=== PATIENT | male | born 1960 | race Caucasian/White ===

== ENCOUNTER → 2021-01-03 | Day surgery (SDC) | payer OTHER ==
[~2021-01-03] VITALS: Ht 180.3 cm; Wt 158.0 kg
[~2021-01-03] MED LIST: ATOR40TA59 PO; CHOL5000 PO; EZET10TA20 PO; GLIM4TAB8 PO; HYDROmorphone 2 MG/ML VIAL IVP PRN; IV RINGERS,LACTATED 1000ML 1,000 ML IV SCH; LIDOCAINE 2% PF 5 ML VIAL. ONE; LOSA100T14 PO; METF10007 PO; METO100T7 PO; MORPHINE SULFATE 2 MG/ML INJ. IVP PRN; PROCHLORPERAZINE 10 MG/2 ML VIAL. IVP PRN; PROPOFOL 10 MG/ML (20ML) VIAL. IV ONE; fentaNYL PF VIAL 100 MCG/2 ML VIAL IVP PRN
[2021-01-03 12:15] VITALS: BP 160/75
--- NOTE | 2021-01-03 13:29 | PDOC4 ---
PROCEDURE Procedure Colonoscopy with biopsies. Indication: h/o polyps Meds: per anesthesia Findings: COLLINS--Normal --'Scope advanced to cecum. Prep fair. Mucosa normal. 2, 3-5mm polyps, transverse, biopsied off. Exam otherwise normal. Rishi. well. IMP: Polyps REC: Await path. Resume home meds, diet. F/u with me in 2 weeks. Repeat exam in 5 years. JAS TOMLINSON MD Jan 03, 2021 13:29
[2021-01-03 13:50] VITALS: BP 128/61
== END | disposition home or self-care (01) ==
LOC: ENDOS 11:50
PROVIDERS: ATTEND Internal Medicine Gastroenterology
DX: Z12.11 Encounter for screening for malignant neoplasm of colon (principal); K63.5 Polyp of colon; K63.89 Other specified diseases of intestine; I10 Essential (primary) hypertension; E78.00 Pure hypercholesterolemia, unspecified; E11.9 Type 2 diabetes mellitus without complications; E66.9 Obesity, unspecified; M19.90 Unspecified osteoarthritis, unspecified site; G47.30 Sleep apnea, unspecified; Z86.010 Personal history of colon polyps; Z87.891 Personal history of nicotine dependence; Z79.84 Long term (current) use of oral hypoglycemic drugs; Z79.899 Other long term (current) drug therapy; Z98.890 Other specified postprocedural states; Z20.822 Contact with and (suspected) exposure to COVID-19; Z80.0 Family history of malignant neoplasm of digestive organs
CPT/HCPCS: 45380; 87426; J2704